=== PATIENT | male | born 1970 | race Two or more races ===

== ENCOUNTER 2020-10-12 12:52 | Emergency (ER) | payer SELFPAY ==
[~2020-10-12] VITALS: Ht 160 cm; Wt 160.0 kg
[2020-10-12] MEDS ORDERED: MORPHINE SULFATE 4 MG/ML INJ. IVP ONE (13:45)
[2020-10-12] MEDS ORDERED: ONDANSETRON PF 4 MG/2 ML VIAL. IVP ONE (13:45)
[2020-10-12 13:53] LABS: BILIRUBIN,URINE NEGATIVE (NEG); CLARITY,URINE CLEAR; COLOR,URINE YELLOW; NITRITE,URINE NEGATIVE (NEG); PH,URINE 6.5 (<5.0-8.0); PROTEIN,URINE NEGATIVE (NEG-TRACE); UROBILINOGEN,URINE 0.2 mg/dL (0.2 mg/dL)
[2020-10-12 13:58] LABS: BARBITURATES NEG (NEG); BENZODIAZEPINES NEG (NEG); CANNABINOIDS NEG (NEG); COCAINE NEG (NEG); METHADONE NEG (NEG); OPIATES NEG (NEG); PHENCYCLIDINE NEG (NEG)
[2020-10-12] MEDS ORDERED: MULTIVIT INFUSN,ADULT 4,VIT K 10 ML, THIAMINE INJ 100 MG, FOLIC ACID INJ 1 MG in IV NOR... IV ONE (14:00)
[2020-10-12 14:02] LABS: AMPHETAMINE/METHAMPHETAMINE NEG (NEG)
[2020-10-12 14:04] LABS: BASO # 0.1 x10^3/uL (0.0-0.2); BASO % 1 % (0-3); EOS % 0 % (0-3); HEMATOCRIT 44.9 % (39.0-53.0); HEMOGLOBIN 15.6 g/dL (13.0-17.5); LYMPH # 1.8 x10^3/uL (1.0-4.8); LYMPH % 17 % (24-48); MEAN CORPUSCULAR HEMOGLOBIN 30 pg (25-35); MEAN CORPUSCULAR HGB CONC 35 g/dL (31-37); MEAN CORPUSCULAR VOLUME 86 fL (79-100); MONO # 0.6 x10^3/uL (0.0-1.1); MONO % 6 % (0-9); NEUT % 76 % (31-73); PLATELET COUNT 375 x10^3/uL (140-400); RED BLOOD COUNT 5.19 x10^6/uL (4.30-5.70); RED CELL DISTRIBUTION WIDTH 13.8 % (11.5-14.5); WHITE BLOOD COUNT 10.5 x10^3/uL (4.0-11.0)
[2020-10-12 14:12] LABS: CALCIUM 8.5 mg/dL (8.5-10.1); CREATININE 1.1 mg/dL (0.7-1.3); GFR 70.9; POTASSIUM 3.2 mmol/L (3.5-5.1)
[2020-10-12 14:17] LABS: ALBUMIN 4.3 g/dL (3.4-5.0); ALBUMIN/GLOBULIN RATIO 1.2 (1.0-1.7); MAGNESIUM 2.2 mg/dL (1.8-2.4); TOTAL BILIRUBIN 0.7 mg/dL (0.2-1.0); TOTAL PROTEIN 7.9 g/dL (6.4-8.2)
[2020-10-12 14:19] LABS: BACTERIA,URINE 0 /HPF (0-FEW); RBC,URINE 0 /HPF (0-2); WBC,URINE 0 /HPF (0-4)
[2020-10-12] MEDS ORDERED: CONTRAST GIVEN. MC PRN (14:30)
[2020-10-12] MEDS ORDERED: IOHEXOL 300 MG/ML 100ML VIAL. IV ONE (14:30)
[2020-10-12] MEDS ORDERED: POTASSIUM CHLORIDE 20 MEQ TABLET.ER. PO ONE (15:00)
--- NOTE | 2020-10-12 15:04 | PHYS DOC ---
Past Medical History Past Medical History: Alcoholism Past Surgical History: No Surgical History Smoking Status: Never Smoker Alcohol Use: Occasionally General Adult EDM: Chief Complaint: FLANK PAIN HPI: HPI: Patient is a 50 year old male with history of alcoholism who presents the ED today complaining of 10 out of 10 left flank pain, left upper quadrant pain, low back pain, symptoms began yesterday after drinking 12 beers. Patient reports no nausea and vomiting this morning. Denies any fever. Denies any chest pain or shortness of breath. Patient denies any injuries, denies any cauda equina syndrome symptoms. Review of Systems: Review of Systems: Constitutional: Denies fever or chills. [] Eyes: Denies change in visual acuity. [] HENT: Denies nasal congestion or sore throat. [] Respiratory: Denies cough or shortness of breath. [] Cardiovascular: Denies chest pain or edema. [] GI: Reports left upper quadrant abdominal pain with nausea and vomiting, denies bloody stools or diarrhea. [] : Reports left flank pain. Denies dysuria. [] Musculoskeletal: Reports low back pain, denies joint pain. [] Integument: Denies rash. [] Neurologic: Denies headache, focal weakness or sensory changes. [] Endocrine: Denies polyuria or polydipsia. [] Psychiatric: Denies depression or anxiety. [] Heart Score: C/O Chest Pain: N/A Risk Factors: Risk Factors: DM, Current or recent (<one month) smoker, HTN, HLP, family history of CAD, obesity. Risk Scores: Score 0 - 3: 2.5% MACE over next 6 weeks - Discharge Home Score 4 - 6: 20.3% MACE over next 6 weeks - Admit for Clinical Observation Score 7 - 10: 72.7% MACE over next 6 weeks - Early Invasive Strategies Current Medications: Current Medications Medications (Trade) Dose Ordered Sig/Aki Start Time Stop Time Status Last Admin Dose Admin Info (CONTRAST GIVEN -- Rx MONITORING) 1 each PRN DAILY PRN 10/12/20 14:30 10/14/20 14:29 Iohexol (Omnipaque 300 Mg/ml) 75 ml 1X ONCE 10/12/20 14:30 10/12/20 14:31 DC Morphine Sulfate (Morphine Sulfate) 4 mg 1X ONCE 10/12/20 13:45 10/12/20 13:46 DC 10/12/20 14:32 4 MG Multivitamins 10 ml/Thiamine HCl 100 mg/Folic Acid 1 mg/Sodium Chloride 1,011.2 ml @ 1,000.088 mls/hr 1X ONCE 10/12/20 14:00 10/12/20 15:00 10/12/20 14:34 1,000.088 MLS/HR Ondansetron HCl (Zofran) 4 mg 1X ONCE 10/12/20 13:45 10/12/20 13:46 DC 10/12/20 14:31 4 MG Potassium Chloride (Klor-Con) 40 meq 1X ONCE 10/12/20 15:00 10/12/20 15:01 Allergies: Allergies: Allergies Coded Allergies Type Severity Reaction Last Updated Verified No Known Drug Allergies 10/12/20 No Physical Exam: PE: Constitutional: Well developed, well nourished, no acute distress, non-toxic appearance. [] HENT: Normocephalic, atraumatic, bilateral external ears normal, oropharynx moist, no oral exudates, nose normal. [] Eyes: PERRLA, EOMI, conjunctiva normal, no discharge. [] Neck: Normal range of motion, no tenderness, supple, no stridor. [] Cardiovascular:Heart rate regular rhythm, no murmur [] Lungs & Thorax: Bilateral breath sounds clear to auscultation [] Abdomen: Bowel sounds normal, soft, no tenderness, no masses, no pulsatile masses. [] Skin: Warm, dry, no erythema, no rash. [] Back: Diffuse paraspinal muscle tenderness to bilateral lumbar spine worse on the left, no midline lumbar spine tenderness, slight left CVA tenderness. [] Extremities: No tenderness, no cyanosis, no clubbing, ROM intact, no edema. [] Neurologic: Alert and oriented X 3, normal motor function, normal sensory function, no focal deficits noted. [] Psychologic: Affect normal, judgement normal, mood normal. [] Current Patient Data: Labs: Laboratory Tests Test 10/12/20 13:40 10/12/20 13:50 Urine Collection Type Unknown Urine Color Yellow Urine Clarity Clear Urine pH 6.5 (<5.0-8.0) Urine Specific [place] <=1.005 (1.000-1.030) Urine Protein Negative mg/dL (NEG-TRACE) Urine Glucose (UA) Negative mg/dL (NEG) Urine Ketones (Stick) Negative mg/dL (NEG) Urine Blood Negative (NEG) Urine Nitrite Negative (NEG) Urine Bilirubin Negative (NEG) Urine Urobilinogen Dipstick 0.2 mg/dL (0.2 mg/dL) Urine Leukocyte Esterase Negative (NEG) Urine RBC 0 /HPF (0-2) Urine WBC 0 /HPF (0-4) Urine Bacteria 0 /HPF (0-FEW) Urine Opiates Screen Neg (NEG) Urine Methadone Screen Neg (NEG) Urine Barbiturates Neg (NEG) Urine Phencyclidine Screen Neg (NEG) Urine Amphetamine/Methamphetamine Neg (NEG) Urine Benzodiazepines Screen Neg (NEG) Urine Cocaine Screen Neg (NEG) Urine Cannabinoids Screen Neg (NEG) Urine Ethyl Alcohol Pos (NEG) White Blood Count 10.5 x10^3/uL (4.0-11.0) Red Blood Count 5.19 x10^6/uL (4.30-5.70) Hemoglobin 15.6 g/dL (13.0-17.5) Hematocrit 44.9 % (39.0-53.0) Mean Corpuscular Volume 86 fL (79-100) Mean Corpuscular Hemoglobin 30 pg (25-35) Mean Corpuscular Hemoglobin Concent 35 g/dL (31-37) Red Cell Distribution Width 13.8 % (11.5-14.5) Platelet Count 375 x10^3/uL (140-400) Neutrophils (%) (Auto) 76 % (31-73) H Lymphocytes (%) (Auto) 17 % (24-48) L Monocytes (%) (Auto) 6 % (0-9) Eosinophils (%) (Auto) 0 % (0-3) Basophils (%) (Auto) 1 % (0-3) Neutrophils # (Auto) 8.0 x10^3/uL (1.8-7.7) H Lymphocytes # (Auto) 1.8 x10^3/uL (1.0-4.8) Monocytes # (Auto) 0.6 x10^3/uL (0.0-1.1) Eosinophils # (Auto) 0.0 x10^3/uL (0.0-0.7) Basophils # (Auto) 0.1 x10^3/uL (0.0-0.2) Sodium Level 138 mmol/L (136-145) Potassium Level 3.2 mmol/L (3.5-5.1) L Chloride Level 100 mmol/L (98-107) Carbon Dioxide Level 26 mmol/L (21-32) Anion Gap 12 (6-14) Blood Urea Nitrogen 10 mg/dL (8-26) Creatinine 1.1 mg/dL (0.7-1.3) Estimated GFR (Cockcroft-Gault) 70.9 BUN/Creatinine Ratio 9 (6-20) Glucose Level 93 mg/dL (70-99) Calcium Level 8.5 mg/dL (8.5-10.1) Magnesium Level 2.2 mg/dL (1.8-2.4) Total Bilirubin 0.7 mg/dL (0.2-1.0) Aspartate Amino Transferase (AST) 26 U/L (15-37) Alanine Aminotransferase (ALT) 46 U/L (16-63) Alkaline Phosphatase 117 U/L (46-116) H Total Protein 7.9 g/dL (6.4-8.2) Albumin 4.3 g/dL (3.4-5.0) Albumin/Globulin Ratio 1.2 (1.0-1.7) Lipase 72 U/L (73-393) L Ethyl Alcohol Level 86 mg/dL (0-10) H Laboratory Tests 10/12/20 13:50 Laboratory Tests 10/12/20 13:50 Vital Signs: Vital Signs Date Time Temp Pulse Resp B/P (MAP) Pulse Ox O2 Delivery O2 Flow Rate FiO2 10/12/20 13:16 98.9 95 16 159/98 99 Room Air 98.9 EKG: EKG: [] Radiology/Procedures: Radiology/Procedures: []PROCEDURE: CT ABD PELV W/ IV CONTRST ONLY EXAMINATION: CT ABDOMEN+PELVIS W CLINICAL HISTORY: LUQ pain, back pain alcoholic TECHNIQUE: CT of the abdomen and pelvis was performed using standard technique, scanning from just above the dome of the diaphragm to the symphysis pubis following administration of intravenous contrast. CT Dose Reduction Employed: One or more of the following individualized dose reduction techniques were utilized for this examination: 1. Automated exposure control 2. Adjustment of the mA and/or kV according to patient size 3. Use of iterative reconstruction technique. COMPARISON: None FINDINGS: Evaluation limited by prominent patient motion. Small old calcified granuloma in the right lung base. Mild bibasilar subsegmental atelectasis. Diffuse hypoattenuation of the hepatic parenchyma, compatible with steatosis. Gallbladder, pancreas, spleen, and adrenal glands unremarkable. Nonobstructive bilateral renal calculi measuring up to 4 mm on the right and 7 mm on the left. Mildly filled urinary bladder. Nonenlarged prostate. No bowel dilation or definite wall thickening. Normal appendix. Nondistended stomach suboptimally evaluated. No abdominal aortic or iliac artery aneurysm. No evidence of acute osseous abnormality. IMPRESSION: No evidence of acute abdominopelvic abnormality. Hepatic steatosis. Bilateral nonobstructive nephrolithiasis. Electronically signed by: Abel Quesada DO (10/12/2020 3:23 PM) [facility] DICTATED and SIGNED BY: ABEL QUESADA DO DATE: 10/12/20 [id number] 0 Course & Med Decision Making: Course & Med Decision Making Pertinent Labs and Imaging studies reviewed. (See chart for details) This is a 50-year-old male patient presenting to the ED today complaining of left upper quadrant abdominal pain, left flank pain and low back pain, symptoms began last night after drinking 12 beers. Also complaining of nausea and vomiting. CBC with no acute findings, CMP with potassium of 3.2, patient was given oral potassium replacement. Lipase is normal. UA negative for infection. CT of the abdomen and pelvic is negative for any acute findings. Noted for bilateral nonobstructing nephrolithiasis. Discharge to home. Encouraged to get help for alcohol use. Provided return precautions. Traci Disclaimer: Traci Disclaimer: This electronic medical record was generated, in whole or in part, using a voice recognition dictation system. Departure Departure Impression: Primary Impression: Alcoholism Additional Impressions: Left upper quadrant pain Low back pain Qualified Codes: M54.5 - Low back pain Disposition: 01 HOME / SELF CARE / HOMELESS Condition: STABLE Referrals: NO PCP (PCP) Follow-up in 1 to 2 weeks Patient Instructions: Back Pain, Adult Additional Instructions: You were evaluated in the emergency room. Your CT of the abdomen and pelvis is negative for any acute findings. Consider getting help for alcohol use. Scripts Ondansetron (ONDANSETRON ODT) 4 Mg Tab.rapdis 1 TAB PO PRN Q6-8HRS, #16 TAB Prov: WINSOME JASMINE APRN 10/12/20 Meloxicam (MELOXICAM) 7.5 Mg Tablet 1 TAB PO DAILY for 30 Days, #30 TAB 0 Refills Prov: WINSOME JASMINE APRN 10/12/20 Cyclobenzaprine Hcl (CYCLOBENZAPRINE HCL) 10 Mg Tablet 1 TAB PO TID, #30 TAB Prov: WINSOME JASMINE APRN 10/12/20 WINSOME JASMINE APRN Oct 12, 2020 15:04
--- NOTE | 2020-10-12 15:25 | RAD ---
EXAMINATION: CT ABDOMEN+PELVIS W CLINICAL HISTORY: LUQ pain, back pain alcoholic TECHNIQUE: CT of the abdomen and pelvis was performed using standard technique, scanning from just ab ove the dome of the diaphragm to the symphysis pubis following administration of intravenous contrast . CT Dose Reduction Employed: One or more of the following individualized dose reduction techniques wer e utilized for this examination: 1. Automated exposure control 2. Adjustment of the mA and/or kV ac cording to patient size 3. Use of iterative reconstruction technique. COMPARISON: None FINDINGS: Evaluation limited by prominent patient motion. Small old calcified granuloma in the right lung base. Mild bibasilar subsegmental atelectasis. Diffuse hypoattenuation of the hepatic parenchyma, compatible with steatosis. Gallbladder, pancreas, spleen, and adrenal glands unremarkable. Nonobstructive bilateral renal calculi measuring up to 4 mm on the right and 7 mm on the left. Mildly filled urinary bladder. Nonenlarged prostate. No bowel dilation or definite wall thickening. Normal appendix. Nondistended stomach suboptimally selma luated. No abdominal aortic or iliac artery aneurysm. No evidence of acute osseous abnormality. IMPRESSION: No evidence of acute abdominopelvic abnormality. Hepatic steatosis. Bilateral nonobstructive nephrolithiasis. Electronically signed by: Abel Caceres DO (10/12/2020 3:23 PM) [facility]
[2020-10-12] MEDS ORDERED: CYCL10TA2 PO (15:43)
[2020-10-12] MEDS ORDERED: ONDA4TAB12 PO (15:43)
[2020-10-12] MEDS ORDERED: MELO7.5T29 PO (15:43)
[2020-10-12 15:44] VITALS: BP 157/89
== END 2020-10-12 16:18 | disposition home or self-care (01) ==
LOC: ER 12:52
DX: R10.12 Left upper quadrant pain (principal); M54.5 Low back pain; R11.2 Nausea with vomiting, unspecified; F10.20 Alcohol dependence, uncomplicated; Y90.4 Blood alcohol level of 80-99 mg/100 ml
CPT/HCPCS: 36415; 74177; 80053; 80307; 81001; 83690; 83735; 85025; 96365; 96375; 99285; G0480; J2270; J2405; J3411; J3490; J7030